=== PATIENT | female | born 2000 | race African-American/Black ===

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

== ENCOUNTER 2021-05-03 11:07 | Emergency (ER) | payer MEDICAID ==
[~2021-05-03] VITALS: Ht 167.6 cm; Wt 90.0 kg
[2021-05-03] MEDS ORDERED: ACETAMINOPHEN 325MG TABLET PO STA (11:17)
[2021-05-03] MEDS ORDERED: IBUP-2029 PO (13:52)
[2021-05-03 13:55] VITALS: BP 134/80
== END 2021-05-03 14:00 | disposition home or self-care (01) ==
LOC: ER 11:07
DX: M25.562 Pain in left knee (principal)
CPT/HCPCS: 73562; 81025; 99283

== ENCOUNTER 2021-08-21 08:19 | Emergency (ER) | payer MEDICAID ==
[~2021-08-21] VITALS: Ht 167.6 cm; Wt 95.0 kg
[~2021-08-21 08:19] MED LIST: IBUP-2029 PO
[2021-08-21 09:02] VITALS: BP 124/80
[2021-08-21] MEDS ORDERED: ONDA4TAB5 MT (09:05)
[2021-08-21] MEDS ORDERED: ONDANSETRON 4MG ODT PO ONE (09:15)
== END 2021-08-21 09:25 | disposition home or self-care (01) ==
LOC: ER 08:19
DX: B34.9 Viral infection, unspecified (principal); Z98.890 Other specified postprocedural states
CPT/HCPCS: 99283

== ENCOUNTER 2021-12-13 18:15 | Emergency (ER) | payer MEDICAID ==
[~2021-12-13] VITALS: Ht 167.6 cm; Wt 82.0 kg
[~2021-12-13 18:15] MED LIST changes: +ONDA4TAB5 MT
[2021-12-13] MEDS ORDERED: ACTIVATED CHARCOAL 50 G/240 ML TUBE PO ONE (19:45)
[2021-12-13] MEDS ORDERED: SODIUM CHLORIDE 0.9% 1,000 ML IV ONE ×2 (19:45→21:15)
[2021-12-13] MEDS ORDERED: HALOPERIDOL LACTATE 5MG/ML VIAL IM ONE (20:30)
[2021-12-13 20:47] LABS: CHLORIDE 103 mEq/L (98-107)
[2021-12-13 20:56] LABS: ETHANOL BLOOD 141 mg/dL; HCG SCREEN NEGATIVE
[2021-12-13 21:04] LABS: CLARITY URINE CLOUDY (CLEAR); COLOR URINE RED (YELLOW); KETONES URINE NEGATIVE (NEGATIVE); LEUKOCYTE ESTERASE URINE 1+ (NEGATIVE); NITRITE URINE NEGATIVE (NEGATIVE); OCCULT BLOOD URINE 3+ (NEGATIVE); PH URINE 5.5 (4.5-8.0); PROTEIN URINE 1+ (NEGATIVE); SPECIFIC GRAVITY URINE 1.005 (1.005-1.030); UROBILINOGEN URINE 0.2 E.U./dL (0.2-1.0)
[2021-12-13 21:05] LABS: BASOPHILS % 0.3 % (0.0-2.0); EOSINOPHILS % 0.9 % (0.0-5.0); HEMATOCRIT. 34.5 % (36.0-48.0); HEMOGLOBIN. 10.3 g/dL (12.0-16.0); LYMPHOCYTES % 22.5 % (20.0-50.0); MEAN CORPUSCULAR VOLUME 73.6 fL (81.0-99.0); MEAN PLATELET VOLUME 7.5 fl (7.4-10.4); MONOCYTES % 8.1 % (2.0-8.0); NEUTROPHILS % 68.2 % (40.0-76.0); PLATELET 524 x1000/uL (130-400); RED BLOOD CELL COUNT 4.69 mill/uL (4.2-5.4); RED CELL DISTRIBUTION WIDTH 20.3 % (11.6-14.6)
[2021-12-13] MEDS ORDERED: LEVETIRACETAM 500MG PREMIX 100 ML IV ONE ×3 (21:15)
[2021-12-13] MEDS ORDERED: MAGNESIUM 1 G PREMIX 100 ML IV ONE (21:15)
[2021-12-13] MEDS ORDERED: POTASSIUM CHLORIDE INJ 40 MEQ in DEXT 5% WATER 250 ML IV ONE ×4 (21:15)
[2021-12-13 21:19] LABS: *AMPHETAMINES SCREEN URINE NEGATIVE (NEGATIVE); *BARBITURATES SCREEN URINE NEGATIVE (NEGATIVE); *BENZODIAZEPINES SCREEN URINE NEGATIVE (NEGATIVE); *COCAINE SCREEN URINE NEGATIVE (NEGATIVE); CANNABINOID URINE SCREEN NEGATIVE (NEGATIVE); METHADONE URINE SCREEN NEGATIVE (NEGATIVE); OPIATES URINE SCREEN NEGATIVE (NEGATIVE); PHENCYCLIDINE URINE SCREEN NEGATIVE (NEGATIVE)
[2021-12-13] MEDS ORDERED: CEFTRIAXONE 1 G PREMIX 50 ML IV ONE (23:45)
[2021-12-14 10:55] LABS: CHLORIDE 113 mEq/L (98-107)
[2021-12-14] MEDS ORDERED: BUSPIRONE HCL 10MG TABLET PO SCH (13:00)
[2021-12-14 17:27] VITALS: BP 123/80
[2021-12-15] MEDS ORDERED: FLUOXETINE HCL 10 MG CAPSULE PO SCH (09:00)
== END 2021-12-14 16:33 | disposition short-term general hospital (02) ==
LOC: ER 18:15
DX: R45.851 Suicidal ideations (principal); E87.6 Hypokalemia; R51.9 Headache, unspecified; Z20.822 Contact with and (suspected) exposure to COVID-19
CPT/HCPCS: 36415; 70450; 71045; 80053; 80305; 80307; 80320; 80329; 81003; 81025; 83735; 84703; 85025; 93005; 96361; 96365; 96367; 96372; 99291; C9803; J0696; J1630; J3475; J3480; J7030; J7060; U0003; U0005; G0480

== ENCOUNTER 2022-09-05 05:36 | Emergency (ER) | payer MEDICAID ==
[~2022-09-05] VITALS: Ht 167.6 cm; Wt 125.5 kg
[2022-09-05 05:45] VITALS: BP 145/91
== END 2022-09-05 07:00 | disposition left against medical advice (07) ==
LOC: ER 05:36
DX: Z53.21 Procedure and treatment not carried out due to patient leaving prior to being seen by health care provider (principal)
CPT/HCPCS: 99281

== ENCOUNTER 2025-02-23 19:16 | Emergency (ER) | payer OTHER ==
[~2025-02-23] VITALS: Ht 167.6 cm; Wt 98.4 kg
[~2025-02-23 19:16] MED LIST changes: +IBUP-1455 PO; -IBUP-2029 PO
[2025-02-23 19:45] VITALS: O2SAT 99
[2025-02-23] MEDS ORDERED: OLAN5TAB74 MT ×2 (20:03→20:14)
[2025-02-23] MEDS ORDERED: OLAN10TA72 MT (20:03)
[2025-02-23 20:31] VITALS: BP 139/85; PULSE 105; RESP 16; TEMP 36.9; O2SAT 99
== END 2025-02-23 21:40 | disposition home or self-care (01) ==
LOC: ER 19:26
DX: F31.9 Bipolar disorder, unspecified (principal); F41.9 Anxiety disorder, unspecified; F10.90 Alcohol use, unspecified, uncomplicated; Z98.890 Other specified postprocedural states; Z76.0 Encounter for issue of repeat prescription; Z79.899 Other long term (current) drug therapy; Y90.9 Presence of alcohol in blood, level not specified
CPT/HCPCS: 99281; 99282

== ENCOUNTER 2025-05-26 18:39 | Emergency (ER) | payer OTHER ==
[~2025-05-26] VITALS: Ht 172.7 cm; Wt 100.0 kg
[~2025-05-26 18:39] MED LIST changes: +OLAN10TA72 MT; +OLAN5TAB74 MT
[2025-05-26 18:40] VITALS: O2SAT 99
[2025-05-26 18:51] VITALS: BP 138/84; PULSE 100; RESP 18; TEMP 37; O2SAT 100
[2025-05-27] MEDS ORDERED: OXYC-100 MT (10:30)
[2025-05-27] MEDS ORDERED: OXYC-100 PO (10:43)
== END 2025-05-26 20:25 | disposition left against medical advice (07) ==
LOC: ER 18:39
DX: M25.571 Pain in right ankle and joints of right foot (principal); F41.9 Anxiety disorder, unspecified; F31.9 Bipolar disorder, unspecified
CPT/HCPCS: 99281